=== PATIENT | female | born 1945 | race Caucasian/White ===

== ENCOUNTER 2016-12-30 18:24 | Emergency (ER) | payer MEDICARE, BC ==
--- NOTE | 2016-12-30 19:25 | EDM.PDOC ---
ED HPI Trauma - General Chief Complaint: Upper Extremity Injury/Pain Stated Complaint: FELL ON ICE/SHOULDER Source: Reports: Patient History Limitations: Reports: No limitations - History of Present Illness INITIAL COMMENTS - FREE TEXT/NARRATIVE: pain left shoulder and clavicle, slipped on ice getting out of car fell twisting left shoulder, landed on butt, no loss of consciousness, no posterior neck pain Occurred When: just prior to arrival Occurred Where: other Method of Injury: fall Severity: moderate Past Medical History HEENT History: Reports: Impaired vision Cardiovascular History: Reports: Afib, High cholesterol, Hypertension, Stents, Other (see below) Other Cardiovascular History: 4stents Respiratory History: Reports: None Gastrointestinal History: Reports: None Genitourinary History: Reports: None CONVERTER SUPERVISOR History: Reports: None Musculoskeletal History: Reports: Arthritis Neurological History: Reports: None Psychiatric History: Reports: None Endocrine/Metabolic History: Reports: Diabetes, type II, Hypothyroidism Hematologic History: Reports: None Immunologic History: Reports: None Oncologic (Cancer) History: Reports: None Dermatologic History: Reports: None - Infectious Disease History Infectious Disease History: Reports: None - Past Surgical History Head Surgeries/Procedures: Reports: None Social & Family History - Family History Family Medical History: Noncontributory - Tobacco Use Smoking Status *Q: Never Smoker - Caffeine Use Caffeine Use: Reports: None - Recreational Drug Use Recreational Drug Use: No Review of Systems - Review of Systems Review Of Systems: See Below Constitutional: Reports: no symptoms Eyes: Reports: no symptoms Ears: Reports: no symptoms Nose: Reports: no symptoms Mouth/Throat: Reports: no symptoms Respiratory: Reports: No Symptoms Cardiovascular: Reports: no symptoms GI/Abdominal: Reports: No symptoms Genitourinary: Reports: no symptoms Musculoskeletal: Reports: shoulder pain (left), muscle pain (anterior left neck) . Denies: back pain, leg pain Skin: Reports: no symptoms Neurological: Reports: No Symptoms. Denies: Dizziness, Numbness Trauma Exam - Physical Exam Exam: See Below Exam Limited By: No limitations General Appearance: Reports: alert, mild distress Head: Reports: atraumatic, normocephalic. Denies: scalp abrasions Eyes: bilateral eye: PERRL Ears: Reports: normal external exam, normal TMs Nose: Reports: normal inspection Throat/Mouth: Reports: Normal inspection Neck: Reports: full range of motion, normal alignment, normal inspection, painful range of motion (increase in pain left anterior with rotation) Respiratory Exam: Reports: no respiratory distress, lungs clear, normal breath sounds Cardiovascular: Reports: normal peripheral pulses, regular rate, rhythm GI/Abdominal: Reports: normal bowel sounds, soft Back: Reports: full range of motion Extremities: Reports: bony-point tenderness (left shoulder ), pain with movement (left shoulder, no gross deformity, movement of wrist and elbow intact. ). Denies: normal range of motion Neurologic: Reports: no motor/sensory deficits Skin: Reports: Normal color, Warm/dry - Christiana Coma Score Best Eye Response (Jaylon): (4) open spontaneously Best Verbal Response (Jaylon): (5) oriented Best Motor Response (Jaylon): (6) obeys commands Course - Vital Signs Last Recorded V/S: Last Vital Signs Temp 97.0 F 12/30/16 18:34 Pulse 70 12/30/16 20:23 Resp 18 12/30/16 18:34 BP 179/82 H 12/30/16 20:23 Pulse Ox 96 12/30/16 20:23 - Orders/Labs/Meds Meds: Medications Discontinued Medications Generic Name Dose Route Start Last Admin Trade Name Freq PRN Reason Stop Dose Admin Oxycodone/Acetaminophen Confirm 12/30/16 20:37 Percocet 325-5 Mg Administered 12/30/16 20:38 Dose 2 tab .ROUTE .STK-MED ONE - Radiology Interpretation Free Text/Narrative:: left shoulder and elbow negative. No noted fracture to left clavicle - Re-Assessments/Exams Free Text/Narrative Re-Assessment/Exam: 12/31/16 06:37 left shoulder immobilizer palced. Departure - Departure Time of Disposition: 20:23 Disposition: Home, Self-Care 01 Condition: fair Clinical Impression: Left shoulder pain Qualifiers: Chronicity: acute Qualified Code(s): M25.512 - Pain in left shoulder Fall Qualifiers: Encounter type: initial encounter Qualified Code(s): W19.XXXA - Unspecified fall, initial encounter Instructions: Shoulder Pain, [id number] Referrals: [facility] [employer] [employer] CELLOPHANER [Primary Care Provider] - Forms: ED Department Discharge Additional Instructions: shoulder immobilizer ice to shoulder 15 minutes on every 2 hours for 24 hours follow up with primary care for re-eval and PT, sooner if numbness or tingling tylenol 650mg every 4 hours for mild pain percocet 5/325 one half to one every 6 hours as needed for moderate to severe pain #10
[2016-12-30 20:23] VITALS: BP 179/82
[2016-12-30] MEDS ORDERED: Acetaminophen/oxyCODONE 325-5 MG Tab PO ONE (20:37)
[2016-12-30] MEDS ORDERED: Acetaminophen/oxyCODONE 325-5 MG Tab ONE (20:37)
== END 2016-12-30 20:50 | disposition home or self-care (01) ==
LOC: DL.ED 18:24
DX: M25.512 Pain in left shoulder (principal); I48.91 Unspecified atrial fibrillation; E78.00 Pure hypercholesterolemia, unspecified; M19.90 Unspecified osteoarthritis, unspecified site; E11.9 Type 2 diabetes mellitus without complications; I10 Essential (primary) hypertension; E03.9 Hypothyroidism, unspecified; W19.XXXA Unspecified fall, initial encounter
CPT/HCPCS: 73030; 99283; A9270

== ENCOUNTER 2019-03-03 09:51 | Emergency (ER) | payer MEDICARE, BC ==
[2019-03-03 09:14] VITALS: PULSE 70
--- NOTE | 2019-03-03 09:34 | CR ---
Clinical history: 73-year-old female with chest pain. Interpretation: Upright AP portable chest film confirms large heart but normal pulmonary vascularity. Sternotomy wires, cardiac pacemaker (leads intact) and external bus driver/monitor leads. No alveolar edema or dependent pleural effusion. No lung mass hilar lymphadenopathy or focal lobar pneumonia. No atelectasis/collapse. No pneumothorax. CONCLUSION: Cardiomegaly. No acute cardiopulmonary abnormality.
[2019-03-03 09:47] LABS: ANION GAP 16.1
--- NOTE | 2019-03-03 09:51 | EDM.PDOC ---
ED HPI GENERAL MEDICAL PROBLEM - General Stated Complaint: AMBULANCE Time Seen by Provider: 03/03/19 09:40 Source of Information: Reports: Patient History Limitations: Reports: No Limitations - History of Present Illness INITIAL COMMENTS - FREE TEXT/NARRATIVE: This 73 yo female patient was brought to the ED by [facility] due to left sided chest pain. The patient reports her symptoms started yesterday morning and have been intermittent since that time. The patient reports she did take Nitro during the night which improved her symptoms. The patient reports she has a history of low iron levels (sees Dr. Loomis), previous cardiac stent (years ago ), and a renal stent (opened at the beginning of the month). The patient reports she had an Echo done last week and was called with the results yesterday (the patient reports she was told she has a 35% EF compared to a previously measured 30% EF). The patient reports she currently feels better, but still has some pain in the left side of her chest. The patient reports her current pain is similar to the pain she had when she had her renal artery stent occluded. Onset Date: 03/02/19 Duration: Intermittent Location: Reports: Chest (left sided chest wall pain) Quality: Reports: Dull Severity: Mild Improves with: Reports: Medication (Nitro) Worsens with: Reports: None Context: Reports: Other Associated Symptoms: Reports: Chest Pain (left sided chest wall pain) Treatments DIRECTOR OF CONTENT MARKETING: Reports: Nitroglycerin Left Chest Pain Score (Numeric/FACES): 8 - Related Data Allergies Allergy/AdvReac Type Severity Reaction Status Date / Time acetaminophen [From Vicodin] Allergy Confusion Verified 03/03/19 09:54 amiodarone Allergy Cannot Verified 03/03/19 09:54 Remember hydrocodone [From Vicodin] Allergy Confusion Verified 03/03/19 09:54 naproxen Allergy Rash Verified 03/03/19 09:54 niacin Allergy Rash Verified 03/03/19 09:54 penicillin G Allergy Rash Verified 03/03/19 09:54 propofol Allergy Anaphylactic Verified 03/03/19 09:54 Shock simvastatin Allergy Cannot Verified 03/03/19 09:54 Remember flu vaccine Allergy Cannot Uncoded 03/03/19 09:54 Remember Past Medical History HEENT History: Reports: Impaired Vision Cardiovascular History: Reports: Afib, High Cholesterol, Hypertension, Stents Other Cardiovascular History: 4stents Respiratory History: Reports: None Gastrointestinal History: Reports: None Genitourinary History: Reports: Other (See Below) Other Genitourinary History: renal stents HEAD OF HOUSEKEEPING History: Reports: None Musculoskeletal History: Reports: Arthritis Neurological History: Reports: None Psychiatric History: Reports: None Endocrine/Metabolic History: Reports: Diabetes, Type II, Hypothyroidism Hematologic History: Reports: None Immunologic History: Reports: None Oncologic (Cancer) History: Reports: None Dermatologic History: Reports: None - Infectious Disease History Infectious Disease History: Reports: None - Past Surgical History Head Surgeries/Procedures: Reports: None Cardiovascular Surgical History: Reports: Carotid Stents, Coronary Artery Stent Social & Family History - Family History Family Medical History: Noncontributory - Tobacco Use Smoking Status *Q: Never Smoker Second Hand Smoke Exposure: No - Caffeine Use Caffeine Use: Reports: None - Recreational Drug Use Recreational Drug Use: No ED ROS GENERAL - Review of Systems Review Of Systems: ROS reveals no pertinent complaints other than HPI. ED EXAM, GENERAL - Physical Exam Exam: See Below Exam Limited By: No Limitations General Appearance: Alert, WD/WN, Moderate Distress, Obese Eye Exam: Bilateral Eye: EOMI, Normal Inspection, PERRL Ears: Normal External Exam, Normal Canal, Hearing Grossly Normal, Normal TMs Nose: Normal Inspection, Normal Mucosa, No Blood Throat/Mouth: Normal Inspection, Normal Lips, Normal Teeth, Normal Gums, Normal Oropharynx, Normal Voice, No Airway Compromise Head: Atraumatic, Normocephalic Neck: Normal Inspection, Supple, Non-Tender, Full Range of Motion Respiratory/Chest: No Respiratory Distress, Lungs Clear, Normal Breath Sounds, No Accessory Muscle Use, Chest Non-Tender Cardiovascular: Normal Peripheral Pulses, Regular Rate, Rhythm, No Edema, No Gallop, No JVD, No Murmur, No Rub GI/Abdominal: Normal Bowel Sounds, Soft, Non-Tender, No Organomegaly, No Distention, No Abnormal Bruit, No Mass (Female) Exam: Deferred Rectal (Female) Exam: Normal Rectal Tone, Black Stool Back Exam: Normal Inspection, Full Range of Motion, NT Extremities: Normal Inspection, Normal Range of Motion, Non-Tender, Normal Capillary Refill, No Pedal Edema Neurological: Alert, Oriented, CN II-XII Intact, Normal Cognition, Normal Gait, Normal Reflexes, No Motor/Sensory Deficits Psychiatric: Normal Affect, Normal Mood Skin Exam: Warm, Dry, Intact, Normal Color, No Rash Lymphatic: No Adenopathy Course - Vital Signs Last Recorded V/S: Last Vital Signs Temp 36.2 C 03/03/19 10:30 Pulse 70 03/03/19 10:30 Resp 16 03/03/19 10:30 BP 93/30 L 03/03/19 10:30 Pulse Ox 100 03/03/19 10:30 - Orders/Labs/Meds Orders: Active Orders 24 hr Category Date Time Status EKG Documentation Completion [RC] URGENT Care 03/03/19 09:06 Active RED BLOOD CELLS LP [BBK] Stat Lab 03/03/19 09:57 Ordered TYPE AND SCREEN [BBK] Stat Lab 03/03/19 09:57 Ordered UA RFX JOSIE AND CULT IF INDIC [URIN] Stat Lab 03/03/19 10:42 Ordered Lactated Ringers [Ringers, Lactated] 1,000 ml Med 03/03/19 10:21 Ordered IV .BOLUS Transfuse Red Blood Cells [COMM] Urgent Oth 03/03/19 09:57 Ordered Medication Orders Lactated Ringer's (Ringers, Lactated) 1,000 mls @ 999 mls/hr IV .BOLUS ONE Stop: 03/03/19 11:21 Last Admin: 03/03/19 10:24 Dose: 999 mls/hr Labs: Laboratory Tests 03/03/19 03/03/19 Range/Units 09:19 09:19 WBC 11.4 H (5.0-10.0) 10^3/uL RBC 1.98 L (4.2-5.4) 10^6/uL Hgb 6.3 L* (12.0-16.0) g/dL Hct 19.9 L* (37.0-47.0) % MCV 100.5 H (80-100) fL MCH 31.8 (27.0-34.0) pg MCHC 31.7 L (33.0-35.0) g/dL Plt Count 325 (150-450) 10^3/uL Neut % (Auto) 74.6 (42.2-75.2) % Lymph % (Auto) 17.9 L (20.5-50.1) % Crisp % (Auto) 6.5 (2-8) % Eos % (Auto) 0.4 L (1.0-3.0) % Baso % (Auto) 0.6 (0.0-1.0) % Sodium 137 (135-145) mmol/L Potassium 5.1 H (3.6-5.0) mmol/L Chloride 107 (101-111) mmol/L Carbon Dioxide 19.0 L (21.0-31.0) mmol/L Anion Gap 16.1 BUN 73 H (7-18) mg/dL Creatinine 1.1 (0.6-1.3) mg/dL Est Cr Clr Drug Dosing 39.92 mL/min Estimated GFR (MDRD) 49 BUN/Creatinine Ratio 66.36 Glucose 217 H (74-105) mg/dL Calcium 9.2 (8.4-10.2) mg/dl Total Bilirubin 1.1 H (0.2-1.0) mg/dL AST 31 (10-42) IU/L ALT 16 (10-60) IU/L Alkaline Phosphatase 23 L (42-121) IU/L Troponin I 0.03 H* (0.00-0.02) ng/ml B-Natriuretic Peptide 147 H (0-100) pg/ml Total Protein 6.2 L (6.7-8.2) g/dl Albumin 3.3 (3.2-5.5) g/dl Globulin 2.9 Albumin/Globulin Ratio 1.14 Meds: Medications Generic Name Dose Route Start Last Admin Trade Name Freq PRN Reason Stop Dose Admin Lactated Ringer's 1,000 mls @ 999 mls/hr 03/03/19 10:21 03/03/19 10:24 Ringers, Lactated IV 03/03/19 11:21 999 mls/hr .BOLUS ONE Administration Discontinued Medications Generic Name Dose Route Start Last Admin Trade Name Freq PRN Reason Stop Dose Admin Ondansetron HCl 4 mg 03/03/19 09:55 03/03/19 10:00 Zofran IV 03/03/19 09:56 4 mg ONETIME ONE Administration - Re-Assessments/Exams Free Text/Narrative Re-Assessment/Exam: 03/03/19 10:49 After waiting for 20 minutes on hold with [facility] in [place], we were informed that [facility] was on diversion for ICU beds. Call was ended and a call was placed to [facility]. Departure - Departure Time of Disposition: 10:50 Disposition: DC/Tfer to [facility] 02 Condition: Serious Clinical Impression: GI bleed Qualifiers: GI bleed type/associated pathology: unspecified gastrointestinal hemorrhage type Qualified Code(s): K92.2 - Gastrointestinal hemorrhage, unspecified Chest pain Qualifiers: Chest pain type: unspecified Qualified Code(s): R07.9 - Chest pain, unspecified - Discharge Information *PRESCRIPTION DRUG MONITORING PROGRAM REVIEWED*: Not Applicable *COPY OF PRESCRIPTION DRUG MONITORING REPORT IN PATIENT ENZO: Not Applicable Forms: Interfacility Transfer EMTALA Care Plan Goals: Discussed the examination, lab, EKG and history with Dr. Kidd ([facility]) . Dr. Kidd accepted the patient for continued evaluation and management. The patient will be transported by [employer]. - My Orders Last 24 Hours: My Active Orders 03/03/19 09:06 EKG Documentation Completion [RC] URGENT 03/03/19 09:57 RED BLOOD CELLS LP [BBK] Stat TYPE AND SCREEN [BBK] Stat Transfuse Red Blood Cells [COMM] Urgent 03/03/19 10:21 Lactated Ringers [Ringers, Lactated] 1,000 ml IV .BOLUS 03/03/19 10:42 UA RFX JOSIE AND CULT IF INDIC [URIN] Stat - Assessment/Plan Last 24 Hours: My Active Orders 03/03/19 09:06 EKG Documentation Completion [RC] URGENT 03/03/19 09:57 RED BLOOD CELLS LP [BBK] Stat TYPE AND SCREEN [BBK] Stat Transfuse Red Blood Cells [COMM] Urgent 03/03/19 10:21 Lactated Ringers [Ringers, Lactated] 1,000 ml IV .BOLUS 03/03/19 10:42 UA RFX JOSIE AND CULT IF INDIC [URIN] Stat
[2019-03-03] MEDS ORDERED: Ondansetron 4 MG/2 ML SDV IV ONE ×2 (09:55→11:11)
[2019-03-03] MEDS ORDERED: Lactated Ringers 1,000 ML IV ONE (10:21)
[2019-03-03 10:31] VITALS: BP 93/30
== END 2019-03-03 11:18 ==
LOC: DL.ED 09:51
DX: K92.2 Gastrointestinal hemorrhage, unspecified (principal); R07.89 Other chest pain; I48.91 Unspecified atrial fibrillation; E78.00 Pure hypercholesterolemia, unspecified; I10 Essential (primary) hypertension; Z95.5 Presence of coronary angioplasty implant and graft; E11.9 Type 2 diabetes mellitus without complications; E03.9 Hypothyroidism, unspecified; Z88.8 Allergy status to other drugs, medicaments and biological substances; Z88.7 Allergy status to serum and vaccine
CPT/HCPCS: 36415; 36430; 71045; 80053; 81001; 82272; 83880; 84484; 85025; 86850; 86900; 86901; 86920; 86922; 87086; 93005; 96365; 96375; 96376; 99284; 99285; J2405; J7120; P9016

== ENCOUNTER 2022-05-07 21:32 | Emergency (ER) | payer MEDICARE, BC ==
[2022-05-07] MEDS ORDERED: fentaNYL 100 MCG/2 ML SDV ONE (22:08)
[2022-05-07] MEDS ORDERED: fentaNYL 100 MCG/2 ML SDV IVPUSH ONE ×3 (22:10→23:06)
[2022-05-07] MEDS ORDERED: Ondansetron 4 MG/2 ML SDV IVPUSH ONE ×2 (23:06→23:20)
[2022-05-07] MEDS ORDERED: fentaNYL 100 MCG/2 ML SDV IV ONE (23:19)
[2022-05-08] MEDS ORDERED: fentaNYL 100 MCG/2 ML SDV IVPUSH ONE ×2 (01:48→01:57)
[2022-05-08] MEDS ORDERED: Diphtheria,Pertussis(Acell),Tetanus Vaccine 0.5 ML Syringe IM ONE (01:53)
== END 2022-05-08 02:11 ==
LOC: DL.ED 21:32
DX: S32.512A Fracture of superior rim of left pubis, initial encounter for closed fracture (principal); S42.295A Other nondisplaced fracture of upper end of left humerus, initial encounter for closed fracture; S80.12XA Contusion of left lower leg, initial encounter; I48.91 Unspecified atrial fibrillation; E78.00 Pure hypercholesterolemia, unspecified; I10 Essential (primary) hypertension; E11.9 Type 2 diabetes mellitus without complications; E03.9 Hypothyroidism, unspecified; Z95.5 Presence of coronary angioplasty implant and graft; Z88.5 Allergy status to narcotic agent; Z88.0 Allergy status to penicillin; Z88.4 Allergy status to anesthetic agent; Z88.8 Allergy status to other drugs, medicaments and biological substances; Z88.7 Allergy status to serum and vaccine; Z23 Encounter for immunization; Z20.822 Contact with and (suspected) exposure to COVID-19; W18.30XA Fall on same level, unspecified, initial encounter
CPT/HCPCS: 51702; 70450; 72125; 72131; 72192; 73060; 73590; 90471; 90715; 96374; 96375; 96376; 99284; 99285; J2405; J3010; U0002

== ENCOUNTER 2024-12-04 15:16 | Inpatient (IN) | payer BC, MEDICARE ==
[2024-12-04] MEDS ORDERED: Sodium Chloride 0.9% 10 ML Syringe FLUSH PRN (15:30)
[2024-12-04 15:39] LABS: BASOPHILS PERCENT AUTO 0.8 % (0.0-1.0); EOSINOPHILS PERCENT AUTO 1.5 % (1.0-3.0); HEMATOCRIT 50.3 % (37.0-47.0); HEMOGLOBIN 16.5 g/dL (12.0-16.0); LYMPHOCYTES PERCENT AUTO 25.3 % (20.5-50.1); MEAN CORPUSCULAR HEMOGLOBIN 33.1 pg (27.0-34.0); MEAN CORPUSCULAR HGB CONC 32.8 g/dL (33.0-35.0); MEAN CORPUSCULAR VOLUME 100.8 fL (80-100); MONOCYTES PERCENT AUTO 8.1 % (2-8); NEUTROPHILS PERCENT AUTO 64.3 % (42.2-75.2); PLATELET COUNT,PLT 118 10^3/uL (150-450); RED BLOOD CELL COUNT 4.99 10^6/uL (4.2-5.4); WHITE BLOOD CELL COUNT,WBC 5.2 10^3/uL (5.0-10.0)
[2024-12-04] MEDS: Iopamidol 755 Mg/ML 100 ML Bottle IVPUSH ONE (15:41)
[2024-12-04 16:00] LABS: INR 1.1 (0.9-1.2); PROTHROMBIN TIME 11.6 SEC (9.0-12.0)
[2024-12-04 16:06] LABS: A/G RATIO 0.8; ALANINE AMINOTRANSFERASE,ALT 17 U/L (14-59); ALBUMIN 3.4 g/dL (3.4-5.0); ALKALINE PHOSPHATASE 144 U/L (46-116); ASPARTATE AMNIOTRANSFERASE,AST 35 U/L (15-37); BILIRUBIN TOTAL 1.4 mg/dL (0.2-1.0); BLOOD UREA NITROGEN,BUN 16 mg/dL (7-18); BUN/CREATININE RATIO 17.2 (No establ ref range); CREATININE 0.93 mg/dL (0.55-1.02); GLUCOSE RANDOM 223 mg/dL (70-99); MAGNESIUM 1.5 mg/dL (1.8-2.4); PROTEIN TOTAL,TP 7.9 g/dL (6.4-8.2)
[2024-12-04] MEDS: HYDROmorphone 2 MG/ML Syringe IVPUSH ONE (16:23)
[2024-12-04] MEDS: Labetalol 20 MG/4 ML Syringe IVPUSH ONE (16:24)
[2024-12-04 16:29] LABS: C-REACTIVE PROTEIN < 0.50 ng/dL (<=0.50); CHLORIDE,CL 98 mmol/L (98-107); ESTIMATED GFR 63 mL/min (>=60); POTASSIUM,K 4.7 mmol/L (3.5-5.1); SODIUM,NA 135 mmol/L (136-145)
[2024-12-04 16:30] LABS: ANION GAP 14.7 mEq/L (7-13); CARBON DIOXIDE,CO2 27 mmol/L (21-32)
[2024-12-04 16:32] LABS: LACTIC ACID 2.6 mmol/L (0.4-2.0)
[2024-12-04] MEDS: Nitroprusside 50 MG in Dextrose 5% in Water 248 ML IV SCH (18:37)
[2024-12-04 19:25] LABS: HEMOGLOBIN A1C 6.6 % (<5.7)
[2024-12-04 19:36] LABS: T4 FREE 1.51 ng/dL (0.76-1.46); TSH ULTRASENSITIVE 2.56 uIU/mL (0.36-3.74)
[2024-12-04] MEDS ORDERED: Naloxone 2 MG/2 ML Syringe IVPUSH PRN (19:44)
[2024-12-04] MEDS ORDERED: HYDROmorphone 0.5 MG/0.5 ML Syringe IVPUSH PRN (19:48)
[2024-12-04] MEDS ORDERED: Ibuprofen 400 MG Tab PO PRN (19:48)
[2024-12-04] MEDS ORDERED: Magnesium Hydroxide 400 MG/5 ML Susp 30 ML Cup PO PRN (19:48)
[2024-12-04] MEDS ORDERED: Sennosides/Docusate Sodium 50-8.6 MG Tab PO PRN (19:48)
[2024-12-04] MEDS ORDERED: Zolpidem 5 MG Tab PO PRN (19:48)
[2024-12-04] MEDS ORDERED: Albuterol/Ipratropium 3.0-0.5 MG/3 ML Neb Soln NEB PRN (19:48)
[2024-12-04] MEDS ORDERED: Polyethylene Glycol 3350 Powder 17 GM Packet PO PRN (19:48)
[2024-12-04] MEDS ORDERED: Glucagon,Human Recombinant 1 MG Vial IM PRN (20:12)
[2024-12-04] MEDS ORDERED: Furosemide 100 MG in Sodium Chloride 0.9% 90 ML IV SCH (20:15)
[2024-12-04] MEDS: Acetaminophen/Butalbital/Caffeine 325-50-40 MG Tab PO ONE (20:18)
[2024-12-04] MEDS: cloNIDine 0.1 MG Tab PO ONE (20:19)
[2024-12-04] MEDS: Morphine 2 MG/ML SYRINGE IVPUSH ONE (20:23)
[2024-12-04] MEDS ORDERED: Flumazenil 0.1 MG/ML 5 ML MDV IVPUSH PRN (20:28)
[2024-12-04] MEDS: niCARdipine/Normal Saline 20 MG in Premix Bag 1 BAG IV SCH (20:28)
[2024-12-04] MEDS: Nystatin Topical Powder 60 GM Bottle TOP SCH (20:41)
[2024-12-04] MEDS: Furosemide 100 MG in Sodium Chloride 0.9% 90 ML IV SCH (20:49)
[2024-12-04] MEDS: Magnesium Sulf/Wat 2 GM/50 mL 2 GM in Premix Bag 1 BAG IV ONE (20:53)
[2024-12-04] MEDS: Magnesium Sulf/Wat 2 GM/50 mL 50 ML ONE (21:02)
[2024-12-04] MEDS: LORazepam 2 MG/ML SDV IVPUSH ONE (21:04)
[2024-12-04] MEDS: Bumetanide 1 MG/4 ML MDV IVPUSH ONE (21:05)
[2024-12-05] MEDS: traMADol 50 MG Tab PO PRN (06:04)
[2024-12-05 06:49] LABS: BASOPHILS PERCENT AUTO 0.3 % (0.0-1.0); EOSINOPHILS PERCENT AUTO 0.2 % (1.0-3.0); HEMOGLOBIN 15.2 g/dL (12.0-16.0); LYMPHOCYTES PERCENT AUTO 13.1 % (20.5-50.1); MEAN CORPUSCULAR HEMOGLOBIN 33.2 pg (27.0-34.0); MEAN CORPUSCULAR HGB CONC 32.3 g/dL (33.0-35.0); MEAN CORPUSCULAR VOLUME 102.6 fL (80-100); MONOCYTES PERCENT AUTO 6.4 % (2-8); PLATELET COUNT,PLT 135 10^3/uL (150-450); RED BLOOD CELL COUNT 4.58 10^6/uL (4.2-5.4); WHITE BLOOD CELL COUNT,WBC 9.6 10^3/uL (5.0-10.0)
[2024-12-05 07:05] LABS: ANION GAP 13.4 mEq/L (7-13); POTASSIUM,K 4.4 mmol/L (3.5-5.1)
[2024-12-05 07:06] LABS: ALBUMIN 2.8 g/dL (3.4-5.0); BILIRUBIN TOTAL 1.3 mg/dL (0.2-1.0); BUN/CREATININE RATIO 17.1 (No establ ref range); CALCIUM 9.5 mg/dL (8.5-10.1); CREATININE 1.11 mg/dL (0.55-1.02); EST CRCL DRUG DOSING (CG) 31.52 mL/min; MAGNESIUM 2.1 mg/dL (1.8-2.4); PROTEIN TOTAL,TP 6.8 g/dL (6.4-8.2)
[2024-12-05 07:08] LABS: A/G RATIO 0.7
[2024-12-05] MEDS: Insulin Lispro 100 Units/ML 3 ML Vial SUBCUT SCH (09:21)
[2024-12-05] MEDS: cloNIDine 0.1 MG Tab PO SCH (09:23)
[2024-12-05] MEDS: Acetaminophen 325 MG Tab PO PRN (09:34)
[2024-12-05] MEDS: Apixaban 5 MG Tab PO ONE (12:17)
[2024-12-05] MEDS: Ondansetron 4 MG/2 ML SDV IVPUSH PRN (15:36)
[2024-12-05] MEDS: Pantoprazole 40 MG Tab.CR PO SCH (17:29)
[2024-12-05] MEDS: Docusate Sodium 100 MG Cap PO SCH (21:25)
[2024-12-05] MEDS: Apixaban 5 MG Tab PO SCH (21:26)
[2024-12-05] MEDS: Gabapentin 100 MG Cap PO SCH (21:26)
[2024-12-05] MEDS: Cyclobenzaprine 10 MG Tab PO PRN (21:27)
[2024-12-05] MEDS: Zolpidem 5 MG Tab PO PRN (21:27)
[2024-12-06] MEDS: Escitalopram 10 MG Tab PO SCH (08:47)
[2024-12-06] MEDS: Glimepiride 2 MG Tab PO SCH (08:47)
[2024-12-06] MEDS: Modafinil 100 MG Tab PO SCH (08:47)
[2024-12-06] MEDS: Tolterodine 2 MG Tab PO SCH (08:48)
[2024-12-06] MEDS: Clopidogrel 75 MG Tab PO SCH (08:48)
[2024-12-06] MEDS: Metoprolol Succinate 50 MG Tab.ER PO SCH (08:48)
[2024-12-06 10:39] LABS: ALBUMIN 2.7 g/dL (3.4-5.0); ANION GAP 11.8 mEq/L (7-13); BILIRUBIN TOTAL 1.2 mg/dL (0.2-1.0); BUN/CREATININE RATIO 16.4 (No establ ref range); CALCIUM 8.9 mg/dL (8.5-10.1); CREATININE 1.4 mg/dL (0.55-1.02); EST CRCL DRUG DOSING (CG) 24.99 mL/min; MAGNESIUM 1.8 mg/dL (1.8-2.4); POTASSIUM,K 3.8 mmol/L (3.5-5.1); PROTEIN TOTAL,TP 6.4 g/dL (6.4-8.2)
[2024-12-06 10:40] LABS: A/G RATIO 0.73
[2024-12-06] MEDS ORDERED: Furosemide 20 MG Tab PO SCH (16:00)
[2024-12-06] MEDS: Acetaminophen/Butalbital/Caffeine 325-50-40 MG Tab PO PRN (18:00)
[2024-12-06] MEDS: DOXEPIN HCL 3 MG PO SCH (22:12)
[2024-12-07 06:26] LABS: BASOPHILS PERCENT AUTO 0.4 % (0.0-1.0); EOSINOPHILS PERCENT AUTO 0.4 % (1.0-3.0); HEMATOCRIT 42.2 % (37.0-47.0); HEMOGLOBIN 14.2 g/dL (12.0-16.0); LYMPHOCYTES PERCENT AUTO 16.2 % (20.5-50.1); MEAN CORPUSCULAR HEMOGLOBIN 34.1 pg (27.0-34.0); MEAN CORPUSCULAR HGB CONC 33.6 g/dL (33.0-35.0); MEAN CORPUSCULAR VOLUME 101.2 fL (80-100); MONOCYTES PERCENT AUTO 7.5 % (2-8); NEUTROPHILS PERCENT AUTO 75.5 % (42.2-75.2); PLATELET COUNT,PLT 137 10^3/uL (150-450); RED BLOOD CELL COUNT 4.17 10^6/uL (4.2-5.4); WHITE BLOOD CELL COUNT,WBC 7.2 10^3/uL (5.0-10.0)
[2024-12-07 07:10] LABS: ALBUMIN 2.8 g/dL (3.4-5.0); ANION GAP 13.2 mEq/L (7-13); BILIRUBIN TOTAL 1.3 mg/dL (0.2-1.0); BUN/CREATININE RATIO 19.1 (No establ ref range); CALCIUM 9.2 mg/dL (8.5-10.1); CREATININE 1.57 mg/dL (0.55-1.02); EST CRCL DRUG DOSING (CG) 22.28 mL/min; MAGNESIUM 1.7 mg/dL (1.8-2.4); POTASSIUM,K 4.2 mmol/L (3.5-5.1); PROTEIN TOTAL,TP 6.5 g/dL (6.4-8.2)
[2024-12-07 07:11] LABS: A/G RATIO 0.76
[2024-12-07] MEDS ORDERED: HYDROmorphone 1 MG/ML Syringe IVPUSH PRN ×2 (08:17→12:25)
[2024-12-07] MEDS: Lisinopril 20 MG Tab PO SCH (09:24)
[2024-12-07] MEDS: Ziprasidone Mesylate 20 MG Vial IM ONE (15:13)
[2024-12-07] MEDS: Ziprasidone Mesylate 20 MG Vial IM PRN (19:57)
[2024-12-07] MEDS: MVI, Adult with Vitamin K 10 ML, Folic Acid 1 MG, Thiamine 100 MG in Lactated Ringers 1... IV ONE (19:57)
[2024-12-07] MEDS ORDERED: Gabapentin 100 MG Cap PO SCH (21:00)
[2024-12-08 06:25] LABS: BASOPHILS PERCENT AUTO 0.4 % (0.0-1.0); EOSINOPHILS PERCENT AUTO 0.3 % (1.0-3.0); HEMATOCRIT 43.8 % (37.0-47.0); LYMPHOCYTES PERCENT AUTO 15.9 % (20.5-50.1); MEAN CORPUSCULAR HEMOGLOBIN 33.2 pg (27.0-34.0); MEAN CORPUSCULAR VOLUME 103.8 fL (80-100); MONOCYTES PERCENT AUTO 8.5 % (2-8); NEUTROPHILS PERCENT AUTO 74.9 % (42.2-75.2); PLATELET COUNT,PLT 138 10^3/uL (150-450); RED BLOOD CELL COUNT 4.22 10^6/uL (4.2-5.4); WHITE BLOOD CELL COUNT,WBC 7.4 10^3/uL (5.0-10.0)
[2024-12-08] MEDS: Modafinil 100 MG Tab PO SCH (10:34)
[2024-12-08] MEDS: 50% Dextrose in Water 50 ML Syringe IVPUSH PRN (11:43)
[2024-12-08] MEDS: hydrALAZINE 20 MG/ML SDV IVPUSH PRN (11:56)
[2024-12-08 18:36] LABS: ALBUMIN 2.6 g/dL (3.4-5.0); ANION GAP 8.8 mEq/L (7-13); BILIRUBIN TOTAL 1.5 mg/dL (0.2-1.0); BUN/CREATININE RATIO 20.7 (No establ ref range); CREATININE 1.4 mg/dL (0.55-1.02); EST CRCL DRUG DOSING (CG) 24.99 mL/min; POTASSIUM,K 3.8 mmol/L (3.5-5.1); PROTEIN TOTAL,TP 6.3 g/dL (6.4-8.2)
[2024-12-08 18:37] LABS: A/G RATIO 0.7
[2024-12-08] MEDS: Ziprasidone Mesylate 20 MG Vial IM PRN (20:34)
[2024-12-08] MEDS: Dextrose 5%-0.9% NaCl 1,000 ML IV SCH (20:34)
[2024-12-09 07:44] LABS: BASOPHILS PERCENT AUTO 0.3 % (0.0-1.0); HEMATOCRIT 46.1 % (37.0-47.0); HEMOGLOBIN 14.7 g/dL (12.0-16.0); LYMPHOCYTES PERCENT AUTO 18.4 % (20.5-50.1); MEAN CORPUSCULAR HEMOGLOBIN 33.5 pg (27.0-34.0); MEAN CORPUSCULAR HGB CONC 31.9 g/dL (33.0-35.0); MONOCYTES PERCENT AUTO 11.4 % (2-8); NEUTROPHILS PERCENT AUTO 67.9 % (42.2-75.2); PLATELET COUNT,PLT 154 10^3/uL (150-450); RED BLOOD CELL COUNT 4.39 10^6/uL (4.2-5.4); WHITE BLOOD CELL COUNT,WBC 6.4 10^3/uL (5.0-10.0)
[2024-12-09 08:03] LABS: A/G RATIO 0.67; ALBUMIN 2.6 g/dL (3.4-5.0); ANION GAP 8.4 mEq/L (7-13); BILIRUBIN TOTAL 1.6 mg/dL (0.2-1.0); BUN/CREATININE RATIO 21.2 (No establ ref range); CALCIUM 9.1 mg/dL (8.5-10.1); CREATININE 1.13 mg/dL (0.55-1.02); EST CRCL DRUG DOSING (CG) 30.96 mL/min; MAGNESIUM 1.9 mg/dL (1.8-2.4); POTASSIUM,K 4.4 mmol/L (3.5-5.1); PROTEIN TOTAL,TP 6.5 g/dL (6.4-8.2)
[2024-12-09] MEDS: Sodium Chloride 0.9% 500 ML IV SCH (08:51)
[2024-12-09] MEDS: hydrALAZINE 25 MG Tab PO SCH (20:29)
[2024-12-09] MEDS: Fluconazole 100 MG Tab PO ONE (20:30)
[2024-12-09] MEDS: Loperamide 2 MG Cap PO PRN (20:30)
[2024-12-09] MEDS: amLODIPine 5 MG Tab PO SCH (20:30)
[2024-12-10 06:23] LABS: BASOPHILS PERCENT AUTO 0.4 % (0.0-1.0); EOSINOPHILS PERCENT AUTO 1.6 % (1.0-3.0); HEMATOCRIT 39.3 % (37.0-47.0); HEMOGLOBIN 12.5 g/dL (12.0-16.0); LYMPHOCYTES PERCENT AUTO 15.1 % (20.5-50.1); MEAN CORPUSCULAR HEMOGLOBIN 33.4 pg (27.0-34.0); MEAN CORPUSCULAR HGB CONC 31.8 g/dL (33.0-35.0); MEAN CORPUSCULAR VOLUME 105.1 fL (80-100); MONOCYTES PERCENT AUTO 12.2 % (2-8); NEUTROPHILS PERCENT AUTO 70.7 % (42.2-75.2); PLATELET COUNT,PLT 154 10^3/uL (150-450); RED BLOOD CELL COUNT 3.74 10^6/uL (4.2-5.4); WHITE BLOOD CELL COUNT,WBC 6.9 10^3/uL (5.0-10.0)
[2024-12-10 07:27] LABS: A/G RATIO 0.74; ALBUMIN 2.5 g/dL (3.4-5.0); ANION GAP 10.1 mEq/L (7-13); BUN/CREATININE RATIO 20.3 (No establ ref range); CALCIUM 8.8 mg/dL (8.5-10.1); CREATININE 1.33 mg/dL (0.55-1.02); EST CRCL DRUG DOSING (CG) 26.31 mL/min; MAGNESIUM 1.7 mg/dL (1.8-2.4); POTASSIUM,K 4.1 mmol/L (3.5-5.1); PROTEIN TOTAL,TP 5.9 g/dL (6.4-8.2)
[2024-12-10] MEDS: Modafinil 100 MG Tab PO SCH (08:37)
[2024-12-10] MEDS: Fluconazole 100 MG Tab PO SCH (08:38)
[2024-12-10 13:57] LABS: HEMOGLOBIN A1C 6.7 % (<5.7)
[2024-12-10 14:32] LABS: FOLIC ACID 10.7 ng/mL (8.6-58.9)
[2024-12-10] MEDS: Furosemide 40 MG Tab PO SCH (14:37)
[2024-12-10 14:39] LABS: T4 FREE 1.11 ng/dL (0.76-1.46); TSH ULTRASENSITIVE 3.41 uIU/mL (0.36-3.74)
[2024-12-10] MEDS: Magnesium Sulf/Wat 2 GM/50 mL 2 GM in Premix Bag 1 BAG IV ONE (14:39)
[2024-12-10 15:46] LABS: LACTIC ACID 3.2 mmol/L (0.4-2.0)
[2024-12-10] MEDS: Nystatin Susp 100,000 Unit/ML 5 ML UD Cup PO SCH (17:11)
[2024-12-10] MEDS: Sodium Chloride 0.9% 1,000 ML IV SCH (17:54)
[2024-12-10] MEDS: Lidocaine 5% 700 MG Patch TOP SCH (18:18)
[2024-12-11] MEDS: amLODIPine 5 MG Tab PO ONE (05:17)
[2024-12-11 06:19] LABS: BASOPHILS PERCENT AUTO 0.6 % (0.0-1.0); EOSINOPHILS PERCENT AUTO 4.6 % (1.0-3.0); HEMATOCRIT 39.1 % (37.0-47.0); HEMOGLOBIN 13.3 g/dL (12.0-16.0); LYMPHOCYTES PERCENT AUTO 21.3 % (20.5-50.1); MEAN CORPUSCULAR HEMOGLOBIN 34.6 pg (27.0-34.0); MEAN CORPUSCULAR VOLUME 101.8 fL (80-100); MONOCYTES PERCENT AUTO 11.8 % (2-8); NEUTROPHILS PERCENT AUTO 61.7 % (42.2-75.2); PLATELET COUNT,PLT 146 10^3/uL (150-450); RED BLOOD CELL COUNT 3.84 10^6/uL (4.2-5.4); WHITE BLOOD CELL COUNT,WBC 5.3 10^3/uL (5.0-10.0)
[2024-12-11 06:38] LABS: CALCIUM 8.7 mg/dL (8.5-10.1); CREATININE 1.17 mg/dL (0.55-1.02); EST CRCL DRUG DOSING (CG) 29.9 mL/min; MAGNESIUM 1.8 mg/dL (1.8-2.4)
[2024-12-11 06:46] LABS: LACTIC ACID 0.6 mmol/L (0.4-2.0)
[2024-12-11 06:48] LABS: ANION GAP 9.8 mEq/L (7-13); POTASSIUM,K 3.8 mmol/L (3.5-5.1)
[2024-12-11] MEDS ORDERED: amLODIPine 5 MG Tab PO SCH (09:00)
[2024-12-12 07:01] LABS: ALBUMIN 2.5 g/dL (3.4-5.0); ANION GAP 10.7 mEq/L (7-13); BILIRUBIN TOTAL 0.8 mg/dL (0.2-1.0); BUN/CREATININE RATIO 21.7 (No establ ref range); CALCIUM 9.4 mg/dL (8.5-10.1); CREATININE 1.06 mg/dL (0.55-1.02); EST CRCL DRUG DOSING (CG) 33.01 mL/min; POTASSIUM,K 4.7 mmol/L (3.5-5.1); PROTEIN TOTAL,TP 6.1 g/dL (6.4-8.2)
[2024-12-12 07:09] LABS: A/G RATIO 0.69
[2024-12-12] MEDS ORDERED: amLODIPine 5 MG Tab PO SCH (09:00)
[2024-12-12] MEDS: amLODIPine 5 MG Tab PO SCH (10:15)
[2024-12-13] MEDS: Metoprolol Succinate 50 MG Tab.ER PO SCH (12:42)
[2024-12-14] MEDS: hydrALAZINE 25 MG Tab PO SCH (09:52)
[2024-12-15 07:41] VITALS: PULSE 72
[2024-12-15 09:17] VITALS: BP 139/60
== END 2024-12-15 10:56 | disposition swing bed (61) | DRG 64 ==
LOC: DL.ED 15:16 → DL.MS 18:23
PROVIDERS: ADMIT Internal Medicine; ATTEND Internal Medicine
DX: I63.89 Other cerebral infarction (principal); I48.91 Unspecified atrial fibrillation; I50.33 Acute on chronic diastolic (congestive) heart failure; E11.9 Type 2 diabetes mellitus without complications; I16.9 Hypertensive crisis, unspecified; I67.4 Hypertensive encephalopathy; Z88.6 Allergy status to analgesic agent; I42.9 Cardiomyopathy, unspecified; E87.1 Hypo-osmolality and hyponatremia; E87.20 Acidosis, unspecified; J96.10 Chronic respiratory failure, unspecified whether with hypoxia or hypercapnia; N17.9 Acute kidney failure, unspecified; G81.94 Hemiplegia, unspecified affecting left nondominant side; I13.0 Hypertensive heart and chronic kidney disease with heart failure and stage 1 through stage 4 chronic kidney disease, or unspecified chronic kidney disease; E78.00 Pure hypercholesterolemia, unspecified; I48.0 Paroxysmal atrial fibrillation; I49.5 Sick sinus syndrome; E03.9 Hypothyroidism, unspecified; K21.9 Gastro-esophageal reflux disease without esophagitis; G47.33 Obstructive sleep apnea (adult) (pediatric); G47.00 Insomnia, unspecified; E66.9 Obesity, unspecified; H54.7 Unspecified visual loss; M19.90 Unspecified osteoarthritis, unspecified site; D69.6 Thrombocytopenia, unspecified; E11.65 Type 2 diabetes mellitus with hyperglycemia; E83.42 Hypomagnesemia; E88.09 Other disorders of plasma-protein metabolism, not elsewhere classified; E83.52 Hypercalcemia; B37.9 Candidiasis, unspecified; E66.811 Obesity, class 1; D75.1 Secondary polycythemia; E83.39 Other disorders of phosphorus metabolism; F40.240 Claustrophobia; N18.9 Chronic kidney disease, unspecified; G89.29 Other chronic pain; M25.519 Pain in unspecified shoulder; E86.0 Dehydration; R29.700 NIHSS score 0; Z88.1 Allergy status to other antibiotic agents; Z88.0 Allergy status to penicillin; Z88.7 Allergy status to serum and vaccine; Z95.1 Presence of aortocoronary bypass graft; Z95.0 Presence of cardiac pacemaker; Z99.81 Dependence on supplemental oxygen; Z95.5 Presence of coronary angioplasty implant and graft; Z68.33 Body mass index [BMI] 33.0-33.9, adult; Z98.890 Other specified postprocedural states; Z86.73 Personal history of transient ischemic attack (TIA), and cerebral infarction without residual deficits; Z88.8 Allergy status to other drugs, medicaments and biological substances; Z79.1 Long term (current) use of non-steroidal anti-inflammatories (NSAID); Z79.899 Other long term (current) drug therapy; Z79.01 Long term (current) use of anticoagulants
CPT/HCPCS: 36415; 70450; 70496; 70498; 80053; 83036; 83605; 83735; 83880; 84484; 85025; 85610; 85730; 86140; 93005; 93010; 96374; 96375; 99285 ×2; J1171; J1920; Q9967; 51702; 71045; 80048; 82607; 82746; 82947; 82977; 84439; 84443; 93306; 94010; 97110-GO; 97110-GP; 97162-GP; 97165-GO; 97530-GO; 97530-GP; 99232; 99233; A9270-GY; J0360; J1815-GY; J1940; J2060; J2270; J2405; J3411; J3475; J3486; J3490; J7040; J7042; J7060; J7120

== ENCOUNTER 2024-12-15 09:23 | Inpatient (IN) | payer MEDICARE ==
[2024-12-15] MEDS ORDERED: Albuterol/Ipratropium 3.0-0.5 MG/3 ML Neb Soln NEB PRN (10:24)
[2024-12-15] MEDS ORDERED: Loperamide 2 MG Cap PO PRN (10:24)
[2024-12-15] MEDS ORDERED: Polyethylene Glycol 3350 Powder 17 GM Packet PO PRN (10:24)
[2024-12-15] MEDS ORDERED: Magnesium Hydroxide 400 MG/5 ML Susp 30 ML Cup PO PRN (10:24)
[2024-12-15] MEDS ORDERED: 50% Dextrose in Water 50 ML Syringe IVPUSH PRN (10:24)
[2024-12-15] MEDS ORDERED: Glucagon,Human Recombinant 1 MG Vial IM PRN ×2 (10:24)
[2024-12-15] MEDS ORDERED: Sodium Chloride 0.9% 10 ML Syringe FLUSH PRN (10:24)
[2024-12-15] MEDS: Nystatin Susp 100,000 Unit/ML 5 ML UD Cup PO SCH (12:44)
[2024-12-15] MEDS: Insulin Lispro 100 Units/ML 3 ML Vial SUBCUT SCH (12:45)
[2024-12-15] MEDS: hydrALAZINE 25 MG Tab PO SCH (15:43)
[2024-12-15] MEDS: Apixaban 5 MG Tab PO SCH (20:21)
[2024-12-15] MEDS: Lidocaine 5% 700 MG Patch TOP SCH (20:21)
[2024-12-15] MEDS: Nystatin Topical Powder 60 GM Bottle TOP SCH (20:24)
[2024-12-15] MEDS: Acetaminophen 325 MG Tab PO PRN (20:25)
[2024-12-16] MEDS: amLODIPine 5 MG Tab PO SCH (09:26)
[2024-12-16] MEDS: Pravastatin 20 MG Tab PO SCH (09:27)
[2024-12-16] MEDS: Escitalopram 10 MG Tab PO SCH (09:27)
[2024-12-16] MEDS: Metoprolol Succinate 50 MG Tab.ER PO SCH (09:27)
[2024-12-16] MEDS: Clopidogrel 75 MG Tab PO SCH (09:28)
[2024-12-16] MEDS: Sennosides/Docusate Sodium 50-8.6 MG Tab PO PRN (20:27)
[2024-12-17 06:51] LABS: ANION GAP 9.7 mEq/L (7-13); CALCIUM 9.7 mg/dL (8.5-10.1); CREATININE 1.1 mg/dL (0.55-1.02); EST CRCL DRUG DOSING (CG) 31.81 mL/min; POTASSIUM,K 5.7 mmol/L (3.5-5.1)
[2024-12-19] MEDS: Lactulose Soln 10 GM/15 ML 30 ML UD Cup PO SCH (12:38)
[2024-12-19] MEDS: Bismuth Subsalicylate 262 MG Tab.Chew PO ONE (22:32)
[2024-12-19] MEDS: Simethicone 80 MG Tab.Chew PO ONE (23:00)
[2024-12-25] MEDS: Acetaminophen/Butalbital/Caffeine 325-50-40 MG Tab PO PRN (14:36)
[2024-12-26] MEDS: Glimepiride 2 MG Tab PO SCH (09:18)
[2024-12-26] MEDS: Hydrochlorothiazide/Triamterene 25-37.5 Tab PO ONE (12:20)
[2024-12-26] MEDS: amLODIPine 5 MG Tab PO SCH (21:08)
[2024-12-27] MEDS: Hydrochlorothiazide/Triamterene 25-37.5 Tab PO SCH (09:25)
[2024-12-28] MEDS: hydrALAZINE 25 MG Tab PO PRN (21:13)
[2024-12-30 07:26] VITALS: BP 145/53
[2024-12-30 08:43] VITALS: PULSE 83
== END 2024-12-30 16:00 | disposition home or self-care (01) | DRG 57 ==
LOC: DL.MS 10:56
PROVIDERS: ADMIT Internal Medicine; ATTEND Internal Medicine
DX: I69.354 Hemiplegia and hemiparesis following cerebral infarction affecting left non-dominant side (principal); I16.9 Hypertensive crisis, unspecified; N17.9 Acute kidney failure, unspecified; I50.22 Chronic systolic (congestive) heart failure; I13.0 Hypertensive heart and chronic kidney disease with heart failure and stage 1 through stage 4 chronic kidney disease, or unspecified chronic kidney disease; J96.10 Chronic respiratory failure, unspecified whether with hypoxia or hypercapnia; I42.9 Cardiomyopathy, unspecified; I69.398 Other sequelae of cerebral infarction; R53.1 Weakness; D69.6 Thrombocytopenia, unspecified; E83.42 Hypomagnesemia; E83.52 Hypercalcemia; R79.89 Other specified abnormal findings of blood chemistry; B37.9 Candidiasis, unspecified; N18.9 Chronic kidney disease, unspecified; I25.10 Atherosclerotic heart disease of native coronary artery without angina pectoris; I07.1 Rheumatic tricuspid insufficiency; E11.22 Type 2 diabetes mellitus with diabetic chronic kidney disease; E03.9 Hypothyroidism, unspecified; K21.9 Gastro-esophageal reflux disease without esophagitis; G47.33 Obstructive sleep apnea (adult) (pediatric); H54.7 Unspecified visual loss; E78.00 Pure hypercholesterolemia, unspecified; M19.90 Unspecified osteoarthritis, unspecified site; M25.519 Pain in unspecified shoulder; G89.29 Other chronic pain; R51.9 Headache, unspecified; I49.5 Sick sinus syndrome; I27.20 Pulmonary hypertension, unspecified; I48.0 Paroxysmal atrial fibrillation; E80.6 Other disorders of bilirubin metabolism; E66.811 Obesity, class 1; Z79.01 Long term (current) use of anticoagulants; Z98.890 Other specified postprocedural states; Z95.1 Presence of aortocoronary bypass graft; Z88.0 Allergy status to penicillin; Z88.8 Allergy status to other drugs, medicaments and biological substances; Z79.899 Other long term (current) drug therapy; Z79.02 Long term (current) use of antithrombotics/antiplatelets; Z79.84 Long term (current) use of oral hypoglycemic drugs; Z79.51 Long term (current) use of inhaled steroids; Z79.4 Long term (current) use of insulin; I25.2 Old myocardial infarction; Z98.49 Cataract extraction status, unspecified eye; Z90.49 Acquired absence of other specified parts of digestive tract; Z68.36 Body mass index [BMI] 36.0-36.9, adult; Z95.0 Presence of cardiac pacemaker
CPT/HCPCS: 36415; 80048; 82947; 84132; 97110-GO; 97110-GP; 97116-GP; 97129-GO; 97161-GP; 97165-GO; 97530-GO; 97530-GP; 97535-GO; A9270-GY; J3490

== ENCOUNTER 2025-02-10 16:30 | Emergency (ER) | payer MEDICARE ==
[2025-02-10 17:08] LABS: BASOPHILS PERCENT AUTO 0.5 % (0.0-1.0); EOSINOPHILS PERCENT AUTO 1.4 % (1.0-3.0); HEMATOCRIT 34.5 % (37.0-47.0); HEMOGLOBIN 11.4 g/dL (12.0-16.0); LYMPHOCYTES PERCENT AUTO 21.3 % (20.5-50.1); MEAN CORPUSCULAR HEMOGLOBIN 34.9 pg (27.0-34.0); MEAN CORPUSCULAR VOLUME 105.5 fL (80-100); MONOCYTES PERCENT AUTO 10.3 % (2-8); NEUTROPHILS PERCENT AUTO 66.5 % (42.2-75.2); PLATELET COUNT,PLT 141 10^3/uL (150-450); RED BLOOD CELL COUNT 3.27 10^6/uL (4.2-5.4); WHITE BLOOD CELL COUNT,WBC 6.3 10^3/uL (5.0-10.0)
[2025-02-10 17:25] LABS: ALBUMIN 3.5 g/dL (3.4-5.0); BILIRUBIN TOTAL 0.9 mg/dL (0.2-1.0); BUN/CREATININE RATIO 20.9 (No establ ref range); CALCIUM 9.2 mg/dL (8.5-10.1); CREATININE 1.1 mg/dL (0.55-1.02); EST CRCL DRUG DOSING (CG) 34.87 mL/min; PROTEIN TOTAL,TP 6.9 g/dL (6.4-8.2)
[2025-02-10 18:30] VITALS: PULSE 69
[2025-02-10 20:18] VITALS: BP 151/63
== END 2025-02-10 20:15 | disposition home or self-care (01) ==
LOC: DL.ED 16:30
DX: M25.561 Pain in right knee (principal); M25.551 Pain in right hip; I13.0 Hypertensive heart and chronic kidney disease with heart failure and stage 1 through stage 4 chronic kidney disease, or unspecified chronic kidney disease; I50.9 Heart failure, unspecified; N18.9 Chronic kidney disease, unspecified; K21.9 Gastro-esophageal reflux disease without esophagitis; E11.22 Type 2 diabetes mellitus with diabetic chronic kidney disease; E03.9 Hypothyroidism, unspecified; Z90.49 Acquired absence of other specified parts of digestive tract; Z79.899 Other long term (current) drug therapy; Z88.7 Allergy status to serum and vaccine; Z88.8 Allergy status to other drugs, medicaments and biological substances; Z88.0 Allergy status to penicillin; Z88.5 Allergy status to narcotic agent; W01.0XXA Fall on same level from slipping, tripping and stumbling without subsequent striking against object, initial encounter
CPT/HCPCS: 36415; 72192; 73700-RT; 80053; 85025; 99284